=== PATIENT | male | born 1940 | race Caucasian/White ===

== ENCOUNTER → 2016-09-17 | Outpatient (CLI) | payer MEDICARE | END | disposition home or self-care (01) | LOC: RAD 14:37 | PROVIDERS: ATTEND Otolaryngology Facial Plastic Surgery | DX: J34.2 Deviated nasal septum (principal); J30.1 Allergic rhinitis due to pollen | CPT/HCPCS: 70486 ==

== ENCOUNTER → 2019-09-14 | Outpatient (CLI) | payer MEDICARE ==
[~2019-09-14] MED LIST: BISO1TAB51 PO; CALC-126 PO; GLUC-111 PO; OMEG-76 PO; [UNRECOGNIZED DRUG - OTHER] PO; potassium PO
[2019-09-14 15:53] LABS: ALANINE AMINOTRANSFERASE 30 U/L (12-78); ALBUMIN 3.8 g/dL (3.4-5.0); ANION GAP 6 mmol/L (5-15); CALCIUM 8.5 mg/dL (8.5-10.1); CHLORIDE 107 mmol/L (98-107)
[2019-09-14 15:55] LABS: ALKALINE PHOSPHATASE 66 U/L (45-117); BILIRUBIN,TOTAL 0.7 mg/dL (0.2-1.0); TOTAL PROTEIN 7.4 g/dL (6.4-8.2)
== END | disposition home or self-care (01) ==
LOC: STAR 14:29
PROVIDERS: ATTEND Surgery
DX: Z01.812 Encounter for preprocedural laboratory examination (principal); K40.90 Unilateral inguinal hernia, without obstruction or gangrene, not specified as recurrent
CPT/HCPCS: 36415; 80053; 93005

== ENCOUNTER 2019-09-20 07:43 | Day surgery (SDC) | payer MEDICARE ==
[~2019-09-20] VITALS: Ht 167.6 cm; Wt 75.0 kg
[~2019-09-20 07:43] MED LIST changes: +BUPIVACAINE/PF 0.5% ONE; +EPHEDRINE 50 MG/ML, 1ML IVPush PRN; +FENTANYL PF 100 MCG/2ML IV PRN; +HYDROmorphone 1 MG/ML, 1ML INJ IVPush PRN; +LABETALOL 5MG/ML, 20ML IV PRN; +MEPERIDINE/PF 25MG/0.5ML IVPush PRN; +ONDANSETRON 2MG/ML, 2ML IVPush PRN; +OXYcodone 5 MG/5 ML ORAL.SOL UDC PO PRN; +PROMETHAZINE 25 MG/ML, 1ML IVPush PRN; +hydrALAzine 20 MG/ML, 1ML IV PRN
[2019-09-20] MEDS ORDERED: LACTATED RINGERS 1,000 ML IV SCH (07:55)
[2019-09-20] MEDS ORDERED: CHLORHEXIDINE 15 ML UDC MM STA (07:56)
[2019-09-20] MEDS ORDERED: CHLORHEXIDINE 15 ML UDC ONE (08:03)
[2019-09-20] MEDS ORDERED: GABAPENTIN 300 MG CAPSULE PO ONE (08:40)
[2019-09-20] MEDS ORDERED: ACETAMINOPHEN 500 MG TABLET PO ONE (08:45)
[2019-09-20] MEDS ORDERED: FENTANYL PF 250 MCG/5ML ONE (08:45)
[2019-09-20] MEDS ORDERED: CEFAZOLIN 1,000 MG ONE (08:47)
[2019-09-20] MEDS ORDERED: LIDOCAINE-MPF 2% ,5ML ONE (08:47)
[2019-09-20] MEDS ORDERED: PROPOFOL 10 MG/ML, 20ML ONE (08:49)
[2019-09-20] MEDS ORDERED: DEXAMETHASONE 4 MG/ML, 1ML ONE ×2 (09:09)
[2019-09-20] MEDS ORDERED: KETOROLAC 30 MG/1 ML ONE (09:09)
[2019-09-20] MEDS ORDERED: ONDANSETRON 2MG/ML, 2ML ONE (09:09)
[2019-09-20] MEDS ORDERED: EPHEDRINE 50 MG/ML, 1ML ONE (09:10)
[2019-09-20] MEDS ORDERED: EPINEPHRINE 1 MG/ML, 1ML INFIL ONE (09:20)
[2019-09-20] MEDS ORDERED: FENTANYL PF 100 MCG/2ML ONE (11:12)
== END 2019-09-20 11:40 | disposition home or self-care (01) ==
LOC: OUT 07:43
PROVIDERS: ATTEND Surgery
DX: K40.90 Unilateral inguinal hernia, without obstruction or gangrene, not specified as recurrent (principal); Z11.59 Encounter for screening for other viral diseases; D17.6 Benign lipomatous neoplasm of spermatic cord; I10 Essential (primary) hypertension; Z79.899 Other long term (current) drug therapy; Z87.891 Personal history of nicotine dependence; Z88.8 Allergy status to other drugs, medicaments and biological substances; Z90.49 Acquired absence of other specified parts of digestive tract; Z98.890 Other specified postprocedural states; Z83.3 Family history of diabetes mellitus; Z82.49 Family history of ischemic heart disease and other diseases of the circulatory system; Z84.1 Family history of disorders of kidney and ureter; Z80.3 Family history of malignant neoplasm of breast
CPT/HCPCS: 49505; C1781; J0171; J0690; J1100; J1885; J2405; J2704; J3010; J7120; U0001